=== PATIENT | female | born 1945 | race Caucasian/White ===

== ENCOUNTER 2016-12-11 08:10 | Emergency (ER) | payer OTHER ==
[2016-12-11 09:17] LABS: % IMMATURE GRANULYOCYTES 0.1 % (0.0-1.1); ABSOLUTE IMMATURE GRANULOCYTES 0.01 10^3/uL (0.00-0.10); ADD DIFF? NO; ADD MORPH? NO; ADD SCAN? NO; ATYPICAL LYMPHOCYTE FLAG 10 (0-99); FRAGMENT RBC FLAG 0 (0-99); HEMATOCRIT 42.3 % (38.0-47.0); HEMOGLOBIN 13.9 g/dL (12.6-16.3); LEFT SHIFT FLG 0 (0-99); LIPEMIA HEMOLYSIS FLAG 80 (0-99); MEAN CELL HEMOGLOBIN 29.8 pg (27.9-34.1); MEAN CELL HEMOGLOBIN CONCENTR. 32.9 g/dL (32.4-36.7); MEAN CELL VOLUME 90.6 fL (81.5-99.8); MEAN PLATELET VOLUME 9.6 fL (8.7-11.7); PLATELET CLUMPS FLAG 10 (0-99); PLATELET COUNT 357 10^3/uL (150-400); RED BLOOD CELL COUNT 4.67 10^6/uL (4.18-5.33); RED CELL DISTRIBUTION WIDTH 13.8 % (11.5-15.2)
--- NOTE | 2016-12-11 09:17 | EDPHY ---
H & P Stated Complaint: R jaw/throat pain increases w/chewing x 2 wks;noise in head Sun-Mon Time Seen by Provider: 12/11/16 09:01 HPI/ROS: CHIEF COMPLAINT: Right jaw right neck pain x2 weeks HISTORY OF PRESENT ILLNESS: 71-year-old female arrives via private vehicle complaining of 2 weeks of right TMJ and right neck pain described as intermittent, not associated with exertion, constantly present however worsened with chewing and palpation. Remote history of bilateral TMJ surgery in the 1980s. Denies: Chest pain, dyspnea, facial complaints such as paresthesia, visual disturbance, slurred speech, gait instability, the back pain, abdominal pain, nausea, vomiting, dyspnea, diaphoresis, peripheral paresthesia, weakness, numbness. No history of spinal manipulation, major minor head or neck trauma. PRIMARY CARE PROVIDER:Dr. Aura Farr REVIEW OF SYSTEMS: A ten point review of systems was performed and is negative with the exception of the items mentioned in the HPI PAST MEDICAL & SURGICAL HISTORY: no history cardiac disease/RI/PE SOCIAL HISTORY: nonsmoker. No drug use. No alcohol use. FAMILY HISTORY: No pertinent family history PHYSICAL EXAM (Prior to examination, patient consented to physical exam, hands were washed and my usual and customary physical exam procedures followed) 1) GENERAL: Well-developed, well-nourished, alert and oriented. Appears to be in no acute distress. 2) HEAD: Normocephalic, atraumatic 3) HEENT: Pupils equal, round, reactive to light bilaterally. Sclera anicteric. Nasopharynx, oropharynx, clear, no lesions. Tender to palpation right TMJ intraoral exam with no visible abnormality, no palpable abnormality beyond pain, however, no fluctuance, no drainage, no fetid odor. No signs of abscess. Floor of mouth is soft. Submandibular and submental spaces are soft. No induration. Ears bilaterally with normal tympanic membranes. 4) NECK: Full range of motion, no meningeal signs. 5) LUNGS: Clear auscultation bilaterally, no wheezes, no rhonchi, no retractions. 6) HEART: Regular rate and rhythm, no murmur, no heave, no gallop. 7) ABDOMEN: No guarding, no rebound, no focal tenderness, negative McBurney's, negative Armenta's, negative Rovsing's, negative peritoneal sign, 8) MUSCULOSKELETAL: Moving all extremities, no focal areas of tenderness, no obvious trauma. No peripheral edema or discoloration. 9) BACK: No CVA tenderness, no midline vertebral tenderness, no fluctuance, no step-off, no obvious trauma, no visual or palpable abnormality. 10) SKIN: No rash, no petechiae. 11) NEURO: Awake, alert, and oriented to person, place and time. Answers questions appropriately. There were no obvious focal neurologic abnormalities. No cerebellar dysfunction. Cranial nerves 2 through to 12 intact. Normal steady gait. Upper and lower extremities bilaterally with strength 5 / 5, reflexes 2+.. DIFFERENTIAL DIAGNOSIS: In no particular order my differential includes but is not limited to deep space infection, cervico-cranial vessel disssection, RI, muscle strain. - Personal History Current Tetanus Diphtheria and Acellular Pertussis (TDAP): Yes - Medical/Surgical History Hx Asthma: No Hx Chronic Respiratory Disease: No Hx Diabetes: No Hx Cardiac Disease: No Hx Renal Disease: No Hx Cirrhosis: No Hx Alcoholism: No Hx HIV/AIDS: No Hx Splenectomy or Spleen Trauma: No Other PMH: JAW SURGERY for TMJ. HYSTERECTOMY - Social History Smoking Status: Former smoker Constitutional: Initial Vital Signs Temperature (C) 36.4 C 12/11/16 08:14 Heart Rate 74 12/11/16 08:14 Respiratory Rate 16 12/11/16 08:14 Blood Pressure 155/64 H 12/11/16 08:14 O2 Sat (%) 97 12/11/16 08:14 Allergies/Adverse Reactions: Penicillins Allergy (Intermediate, Verified 12/11/16 08:19) Hives Home Medications: Medication Instructions Recorded DULoxetine [Cymbalta 30 MG (*)] 20 mg PO 12/11/16 Medical Decision Making - Diagnostics Imaging: PA and Lateral Chest Indication: Right-sided neck pain Comparison: Two-view chest dated June 16, 2012 Findings: The lungs are well aerated and clear. No pneumothorax, airspace consolidation, edema or effusion. Mild diffuse peribronchial thickening, minimal attenuation of the parenchyma in the upper lung zones, and bilateral apical pleural parenchymal scarring are unchanged. Impression: 1. Clear lungs. No acute process. 2. 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 Dictated By: Frederic Cintron MD CT Head (Without Contrast) 10:25 AM Indication: Posterior headache. Comparison: MRI of the brain dated April 16, 2016. Technique: Standard noncontrast head CT protocol utilizing 5 mm thick collimated slices and field of view of 23 cm. Dose reduction techniques were utilized. Findings: No acute intracranial hemorrhage, mass, or subdural hematoma. The ventricular system is normal caliber and midline. Scattered subcortical and periventricular low- attenuation white matter disease has not significantly changed in volume and distribution since April 2016. The paranasal sinuses are clear. No bone lesions. Impression: 1. Negative. No acute intracranial hemorrhage or mass. 2. Atrophy and white matter disease similar to April 2016. Findings discussed with Emergency Department physician's activities assistant, Jyoti Martinez PA-C, at 10:45 a.m. December 11, 2016. Dictated By: Frederic Cintron MD The CT angio neck is negative per Radiology interpretation. Images reviewed by myself ED Course/Re-evaluation: Patient has been re-evaluated with serial exams, most recently at 11:15 a.m.. Case discussed with Dr. Levy Weaver in the ER. Reviewed her imaging results which are negative with the exception of a right upper lobe lesion which I do not think is contributing primarily to the patient's symptoms today. Doubt acute coronary syndrome. Doubt cervico-cranial vessel dissection. We discussed possibility of acute TMJ pain. We discussed possibility of trigeminal neuralgia. Plan will be discharge and follow up with oral surgery. Patient is agreeable with this. - Data Points Laboratory Results: Laboratory Results 12/11/16 09:00 12/11/16 09:00 12/11/16 12/11/16 09:00 09:00 WBC 7.57 10^3/uL 10^3/uL (3.80-9.50) RBC 4.67 10^6/uL 10^6/uL (4.18-5.33) Hgb 13.9 g/dL g/dL (12.6-16.3) Hct 42.3 % % (38.0-47.0) MCV 90.6 fL fL (81.5-99.8) MCH 29.8 pg pg (27.9-34.1) MCHC 32.9 g/dL g/dL (32.4-36.7) RDW 13.8 % % (11.5-15.2) Plt Count 357 10^3/uL 10^3/uL (150-400) MPV 9.6 fL fL (8.7-11.7) Neut % (Auto) 54.2 % % (39.3-74.2) Lymph % (Auto) 35.5 % % (15.0-45.0) Swain % (Auto) 7.8 % % (4.5-13.0) Eos % (Auto) 1.5 % % (0.6-7.6) Baso % (Auto) 0.9 % % (0.3-1.7) Nucleat RBC Rel Count 0.0 % % (0.0-0.2) Absolute Neuts (auto) 4.10 10^3/uL 10^3/uL (1.70-6.50) Absolute Lymphs (auto) 2.69 10^3/uL 10^3/uL (1.00-3.00) Absolute Monos (auto) 0.59 10^3/uL 10^3/uL (0.30-0.80) Absolute Eos (auto) 0.11 10^3/uL 10^3/uL (0.03-0.40) Absolute Basos (auto) 0.07 10^3/uL 10^3/uL (0.02-0.10) Absolute Nucleated RBC 0.00 10^3/uL 10^3/uL (0-0.01) Immature Gran % 0.1 % % (0.0-1.1) Immature Gran # 0.01 10^3/uL 10^3/uL (0.00-0.10) Sodium 141 mEq/L mEq/L (134-144) Potassium 4.1 mEq/L mEq/L (3.5-5.2) Chloride 104 mEq/L mEq/L (97-110) Carbon Dioxide 27 mEq/l mEq/l (22-31) Anion Gap 10 mEq/L mEq/L (8-16) BUN 15 mg/dL mg/dL (7-23) Creatinine 0.8 mg/dL mg/dL (0.6-1.0) Estimated GFR > 60 Glucose 88 mg/dL mg/dL (70-100) Calcium 9.8 mg/dL mg/dL (8.5-10.4) Troponin I < 0.012 ng/mL ng/mL (0-0.034) Departure - Departure Disposition: Home, Routine, Self-Care Clinical Impression: Temporomandibular joint (TMJ) pain Qualifiers: Laterality: right Qualified Code(s): M26.621 - Arthralgia of right temporomandibular joint Condition: Good Instructions: Temporomandibular Disorder (ED) Additional Instructions: Call 911 if you develop chest pain, dizziness, headache, or any other symptoms that concern you. Your also noted to have a lesion in the right upper part of your lung on the CT scan. This needs follow-up with your primary care provider, Referrals: Julianne Shelton [Medical Doctor] - As per Instructions Aura Farr MD [Primary Care Provider] - 2-3 days without fail
[2016-12-11 09:32] LABS: ANION GAP 10 mEq/L (8-16); CALCIUM 9.8 mg/dL (8.5-10.4); CARBON DIOXIDE 27 mEq/l (22-31); CHLORIDE 104 mEq/L (97-110); CREATININE 0.8 mg/dL (0.6-1.0); GLOMERULAR FILTRATION RATE > 60; GLUCOSE 88 mg/dL (70-100); POTASSIUM 4.1 mEq/L (3.5-5.2); SODIUM 141 mEq/L (134-144)
--- NOTE | 2016-12-11 09:39 | CPEKG ---
Heart Rate: 65 RR Interval: 923 P-R Interval: 160 QRSD Interval: 76 QT Interval: 412 QTC Interval: 429 P [place]: 73 QRS [place]: 24 T Wave [place]: 36 EKG Severity - NORMAL ECG - EKG Impression: SINUS RHYTHM Electronically Signed By: Levy Weaver 11-Dec-2016 14:48:47
[2016-12-11 09:43] LABS: TROPONIN I < 0.012 ng/mL (0-0.034)
[2016-12-11] MEDS ORDERED: IOPAMIDOL (ISOVUE-370) 150 ML BTL IV ONE (10:18)
[2016-12-11 12:01] VITALS: BP 158/76; PULSE 78; RESP 18; TEMP 97.9; O2SAT 96
== END 2016-12-11 12:00 | disposition home or self-care (01) ==
DX: M26.621 Arthralgia of right temporomandibular joint (principal); Z87.891 Personal history of nicotine dependence
CPT/HCPCS: 70450; 70496; 70498; 71020; 93005; 99285; Q9967

== ENCOUNTER → 2017-06-27 | Outpatient (CLI) | payer OTHER | LOC: FIMAGING 19:22 | PROVIDERS: ATTEND Physical Medicine & Rehabilitation | DX: M48.06 Spinal stenosis, lumbar region (principal); M51.36 Other intervertebral disc degeneration, lumbar region; M51.26 Other intervertebral disc displacement, lumbar region ==

== ENCOUNTER → 2018-11-04 | Outpatient (CLI) | payer OTHER | LOC: FIMAGING 11:38 | PROVIDERS: ATTEND Family Medicine | DX: Z12.31 Encounter for screening mammogram for malignant neoplasm of breast (principal); Z13.820 Encounter for screening for osteoporosis; M81.0 Age-related osteoporosis without current pathological fracture; R29.890 Loss of height; M54.9 Dorsalgia, unspecified; Z78.0 Asymptomatic menopausal state ==

== ENCOUNTER → 2018-12-09 | Outpatient (CLI) | payer OTHER | LOC: FIMAGING 10:28 | PROVIDERS: ATTEND Family Medicine | DX: E21.3 Hyperparathyroidism, unspecified (principal) | CPT/HCPCS: 78070; A9500; A9516 ==